=== PATIENT | female | born 1945 | race Two or more races ===

== ENCOUNTER → 2017-08-27 | Emergency (ER) | payer OTHER ==
[~2017-08-27] VITALS: Ht 162.6 cm; Wt 44.5 kg
[~2017-08-27] MED LIST: ACTONEL35 MG; ASPIR 8181 MG; SYNTHROID75 MCG; TOPROL XL25 MG; ZETIA10 MG
== END | disposition home or self-care (01) ==
LOC: ER 20:01
DX: M70.71 Other bursitis of hip, right hip (principal)